=== PATIENT | female | born 1975 | race Caucasian/White ===

== ENCOUNTER 2020-02-25 15:53 | Emergency (ER) | payer OTHER ==
[~2020-02-25] VITALS: Ht 149.9 cm; Wt 84.4 kg
[~2020-02-25 15:53] MED LIST: ADVAIR 100/501 EA; GEODON60 MG PO; HYDROXYZINE PAM50 MG PO; IBUPROFEN600 MG PO; LEXAPRO20 MG PO; ROBAXIN500 MG PO; Z.0.DILANTIN100 MG; Z.0.GEODON20 MG; Z.0.LEXAPRO10 MG; Z.0.SPIRIVA18 MCG; Z.0.TRAZODONE HCL100 PO; ZOVIRAX400 MG PO
[2020-02-25] MEDS ORDERED: HYDROXYZINE HCL25 MG PO (18:14)
--- NOTE | 2020-02-25 18:20 | Emergency Department Note ---
History of Present Illnes History of Present Illness Chief Complaint: Drug Abuse/Intoxication History of Present Illness This is a 45 year old female arrives to the ED seeking help for methamphetamine, crack/cocaine and marijuana withdrawal. Patient denies any homicidal suicidal ideations. Patient denies any chest pain or fever or chills. Patient states she is just looking for additional services. . Chief Complaint Comment STATES SHAKING AND W/DRAWAL FROM HER METH AND COCAINE. PT AWAKE ALERT, AAOX4. FROM HOME. LIVES WITH MOM. DENIES SUICIDAL/HOMICIDAL FAUSTINO ALATIONS. NO SOB NO CP Historian: Patient, [facility]/EMS Arrival Mode: [facility] Treatment DRUG ABUSE TREATMENT SPECIALIST: See EMS Report Severity: mild Onset quality: gradual Duration (how long): week(s) Timing of current episode: intermittent Progression: waxing and waning Chronicity: recurrent Risk factors: drug use Past Medical/Family History Physician Review I have reviewed the patient's past medical and family history. Any updates have been documented here. Past Medical History Recent Fever: No Clinical Suspicion of Infectio: No New/Unexplained Change in Ment: No Other Medical History: PREVIOUS CRACK COCAINE USER, ETOH, CIRRHOSIS METH AND COCAINE ABUSE Other Surgery: OVARY REMOVED Social History Smoking Cessation: Current every day smoker Other Last Tetanus: UNKNOWN Review of Systems Review of Systems Constitutional: Reports no symptoms EENTM: Reports no symptoms Cardiovascular: Reports no symptoms Respiratory: Reports no symptoms Gastrointestinal: Reports no symptoms Genitourinary: Reports no symptoms Musculoskeletal: Reports no symptoms Integumentary: Reports no symptoms Neurological: Reports no symptoms Psychological: Reports as per HPI, Reports emotional problems Endocrine: Reports no symptoms Hematological/Lymphatic: Reports no symptoms Review of other systems: All other systems negative Physical Exam Related Data Allergies: Uncoded Allergies: IV DYE, IODINE CONTAINING CONTRAST (Allergy, 05/20/12) Triage Vital Signs Vital Signs Date Time Temp Pulse Resp B/P (MAP) Pulse Ox O2 Delivery O2 Flow Rate FiO2 02/25/20 15:54 98.4 109 20 160/94 98 Vital signs reviewed: Yes Physical Exam CONSTITUTIONAL Constitutional: Present well-developed, Present well-nourished HENT HENT: Present normocephalic, Present atraumatic, Present oropharynx clear/moist, Present nose normal HENT L/R: Present left ext ear normal, Present right ext ear normal EYES Eyes: Reports PERRL, Reports conjunctivae normal NECK Neck: Present ROM normal PULMONARY Pulmonary: Present effort normal, Present breath sounds normal CARDIOVASCULAR Cardiovascular: Present regular rhythm, Present heart sounds normal, Present capillary refill normal, Present normal rate GASTROINTESTINAL Abdominal: Present soft, Present nontender, Present bowel sounds normal GENITOURINARY Genitourinary: Present exam deferred SKIN Skin: Present warm, Present dry MUSCULOSKELETAL Musculoskeletal: Present ROM normal NEUROLOGICAL Neurological: Present alert, Present oriented x 3, Present no gross motor or sensory deficits PSYCHOLOGICAL Psychological: Present mood/affect normal, Present judgement normal Assessment & Plan Medical Decision Making MDM 45-year-old female seen and evaluated at bedside. Patient is a chronic illicit drug user, recently hasn't used for several weeks. Patient reportedly spent all her stimulus check on cocaine/crack, methamphetamine and marijuana. On arrival to the ED patient with normal vital signs, no fever or chills noted. The patient at length about using alternative support systems to help with her addiction. Patient expressed understanding. Patient individually steady gait. Assessment & Plan Final Impression: (1) Cocaine abuse (2) Crack cocaine overdose (3) Methamphetamine abuse Depart Disposition: HOME, SELF-CARE Last Vital Signs Date Time Temp Pulse Resp B/P (MAP) Pulse Ox O2 Delivery O2 Flow Rate FiO2 02/25/20 15:54 98.4 109 20 160/94 98 Home Meds Active Scripts Hydroxyzine Hcl (HYDROXYZINE HCL) 25 Mg Tablet, 25 MG PO DAILY, #30 TAB Prov:ROSHNI MENJIVAR, DO 02/25/20 Reported Medications Acyclovir (ZOVIRAX) 400 Mg Tablet, 1 TAB PO BID 10/07/12 Methocarbamol (ROBAXIN) 500 Mg Tablet, 1 TAB PO BID 10/07/12 Hydroxyzine Pamoate (HYDROXYZINE PAMOATE) 50 Mg Capsule, 1 TAB PO BID 10/07/12 Ibuprofen (IBUPROFEN) 600 Mg Tablet, 1 TAB PO DAILY 10/07/12 Escitalopram Oxalate (LEXAPRO) 20 Mg Tablet, 1 TAB PO DAILY 10/07/12 Ziprasidone Hcl (GEODON) 60 Mg Capsule, 3 TAB PO DAILY 10/07/12 Trazodone Hcl (Trazodone Hcl) 100 Mg Tablet, 2 TAB PO DAILY, 0 Refills 05/20/12 Tiotropium [place] (Spiriva) 18 Mcg Cap.w.dev 05/20/12 Salmeterol Xinaf/Fluticasone (Advair 100/50) 1 Ea Disk 05/20/12 Escitalopram Oxalate (Lexapro) 10 Mg Tablet 05/20/12 Ziprasidone Hcl (Geodon) 20 Mg Capsule 05/20/12 ROSHNI MENJIVAR, Feb 25, 2020 18:03
== END 2020-02-25 18:30 | disposition home or self-care (01) ==
LOC: ER 16:36
DX: F14.23 Cocaine dependence with withdrawal (principal); F15.10 Other stimulant abuse, uncomplicated; F17.210 Nicotine dependence, cigarettes, uncomplicated
CPT/HCPCS: 99282

== ENCOUNTER 2020-03-25 17:53 | Emergency (ER) | payer OTHER ==
[~2020-03-25] VITALS: Ht 149.9 cm; Wt 84.4 kg
[~2020-03-25 17:53] MED LIST changes: +HYDROXYZINE HCL25 MG PO
--- NOTE | 2020-03-25 18:31 | Emergency Department Note ---
History of Present Illnes History of Present Illness Chief Complaint: Abdominal Complaints History of Present Illness This is a 45 year old female tomach is swollen and she has hep c and cirrhosis last time she was tapped was 6 months ago and she was getting tapped once a month but she stopped going to her dr and she ran out of lactulose and naproxen . Historian: Patient Arrival Mode: Car Onset (how long ago): month(s) (6) Location: abd Quality: swelling Radiation: Reports non-radiation Severity: mild Onset quality: gradual Duration (how long): month(s) (6) Timing of current episode: constant Progression: worsening Chronicity: recurrent Context: Denies recent illness, Denies recent surgery Relieving factors: none Exacerbating factors: none Associated symptoms: Reports denies other symptoms Past Medical/Family History Physician Review I have reviewed the patient's past medical and family history. Any updates have been documented here. Past Medical History Recent Fever: No Clinical Suspicion of Infectio: No New/Unexplained Change in Ment: No Other Medical History: PREVIOUS CRACK COCAINE USER, ETOH, CIRRHOSIS METH AND COCAINE ABUSE Other Surgery: OVARY REMOVED Social History Smoking Cessation: Current every day smoker Alcohol Use: None Any Illegal Drug Use: No Physically hurt or threatened: No Family History Family history of heart diseas: No Other Last Tetanus: UNKNOWN Review of Systems Review of Systems Constitutional: Reports no symptoms EENTM: Reports no symptoms Cardiovascular: Reports no symptoms Respiratory: Reports no symptoms Gastrointestinal: Reports as per HPI Genitourinary: Reports no symptoms Musculoskeletal: Reports no symptoms Integumentary: Reports no symptoms Neurological: Reports no symptoms Psychological: Reports no symptoms Endocrine: Reports no symptoms Hematological/Lymphatic: Reports no symptoms Physical Exam Related Data Allergies: Uncoded Allergies: IV DYE, IODINE CONTAINING CONTRAST (Allergy, 05/20/12) Triage Vital Signs Vital Signs Date Time Temp Pulse Resp B/P (MAP) Pulse Ox O2 Delivery O2 Flow Rate FiO2 03/25/20 18:11 97.8 98 18 134/93 100 Room Air Vital signs reviewed: Yes Physical Exam CONSTITUTIONAL Constitutional: Present well-developed, Present well-nourished HENT HENT: Present normocephalic, Present atraumatic, Present oropharynx clear/moist, Present nose normal HENT L/R: Present left ext ear normal, Present right ext ear normal EYES Eyes: Reports PERRL, Reports conjunctivae normal NECK Neck: Present ROM normal PULMONARY Pulmonary: Present effort normal, Present breath sounds normal CARDIOVASCULAR Cardiovascular: Present regular rhythm, Present heart sounds normal, Present capillary refill normal, Present normal rate GASTROINTESTINAL Abdominal: Present soft, Present nontender, Present bowel sounds normal, Present distension (pt has ascites with fluid wave, nontender, ascites is not tense) GENITOURINARY Genitourinary: Present exam deferred SKIN Skin: Present warm, Present dry MUSCULOSKELETAL Musculoskeletal: Present ROM normal NEUROLOGICAL Neurological: Present alert, Present oriented x 3, Present no gross motor or sensory deficits PSYCHOLOGICAL Psychological: Present mood/affect normal, Present judgement normal Assessment & Plan Medical Decision Making MDM pt with h/o hep c, cirrhosis with longstanding ascites, no indication for emergent paracentesis, pt is in no distress, no sob, abd is nontender and ascites is not tense. pt discharged home to follow up with her liver doctor. prescribed lactulose 20 grams po bid, dispense 800 grams. Assessment & Plan Final Impression: (1) Cirrhosis (2) Ascites Depart Disposition: HOME, SELF-CARE Last Vital Signs Date Time Temp Pulse Resp B/P (MAP) Pulse Ox O2 Delivery O2 Flow Rate FiO2 03/25/20 18:11 97.8 98 18 134/93 100 Room Air Home Meds Active Scripts Hydroxyzine Hcl (HYDROXYZINE HCL) 25 Mg Tablet, 25 MG PO DAILY, #30 TAB Prov:ROSHNI MENJIVAR, DO 02/25/20 Reported Medications Acyclovir (ZOVIRAX) 400 Mg Tablet, 1 TAB PO BID 10/07/12 Methocarbamol (ROBAXIN) 500 Mg Tablet, 1 TAB PO BID 10/07/12 Hydroxyzine Pamoate (HYDROXYZINE PAMOATE) 50 Mg Capsule, 1 TAB PO BID 10/07/12 Ibuprofen (IBUPROFEN) 600 Mg Tablet, 1 TAB PO DAILY 10/07/12 Escitalopram Oxalate (LEXAPRO) 20 Mg Tablet, 1 TAB PO DAILY 10/07/12 Ziprasidone Hcl (GEODON) 60 Mg Capsule, 3 TAB PO DAILY 10/07/12 Trazodone Hcl (Trazodone Hcl) 100 Mg Tablet, 2 TAB PO DAILY, 0 Refills 05/20/12 Tiotropium [place] (Spiriva) 18 Mcg Cap.w.dev 05/20/12 Salmeterol Xinaf/Fluticasone (Advair 100/50) 1 Ea Disk 05/20/12 Escitalopram Oxalate (Lexapro) 10 Mg Tablet 05/20/12 Ziprasidone Hcl (Geodon) 20 Mg Capsule 05/20/12 ION BOSE MD Mar 25, 2020 18:31
== END 2020-03-25 18:18 | disposition home or self-care (01) ==
LOC: ER 18:15
DX: K74.60 Unspecified cirrhosis of liver (principal); R18.8 Other ascites; B19.20 Unspecified viral hepatitis C without hepatic coma; F17.210 Nicotine dependence, cigarettes, uncomplicated
CPT/HCPCS: 99282

== ENCOUNTER → 2020-06-14 | Outpatient (CLI) | payer OTHER ==
[~2020-06-14] MED LIST changes: +ADDERALL 30 MG30 MG PO; +DICYCLOMINE HCL20 MG PO; +FAMOTIDINE20 MG PO; +FOLIC ACID PO; +FUROSEMIDE40 MG PO; +KEPPRA XR750 MG PO; +METFORMIN HCL500 MG PO; +ONDANSETRON2 MG/1 ML PO; +OR PHACO EYE KIT ONE; +PHENYTOIN SODI300 MG PO; +PREOP PHACO EYE KIT ONE; +SEROQUEL100 MG PO; +SEROQUEL50 MG PO; +SULFASALAZINE500 MG PO; +SYMBICORT 80-10.2 GM INH; +TRAZODONE HCL50 MG PO; +VIT B12 PO
== END | disposition home or self-care (01) ==
LOC: LAB 07:36 → OR 07:36 → EDSTATUS 15:30
PROVIDERS: ATTEND Ophthalmology
DX: H25.11 Age-related nuclear cataract, right eye (principal); Z11.59 Encounter for screening for other viral diseases; Z01.812 Encounter for preprocedural laboratory examination; Z53.8 Procedure and treatment not carried out for other reasons

== ENCOUNTER 2021-01-14 18:19 | Emergency (ER) | payer OTHER ==
[~2021-01-14] VITALS: Ht 149.9 cm; Wt 62.6 kg
[~2021-01-14 18:19] MED LIST changes: -OR PHACO EYE KIT ONE; -PREOP PHACO EYE KIT ONE
[2021-01-14 18:53] LABS: BASOPHILS % 0.3 % (0.0-1.0); EOSINOPHILS # (AUTO) 0.1 (0.0-0.4); EOSINOPHILS % 0.9 % (0.0-6.0); HEMATOCRIT 45.6 % (34.2-44.1); HEMOGLOBIN 15.3 g/dL (12.0-16.0); LYMPHOCYTES % 34.3 % (18.0-39.1); MEAN CORPUSCULAR HEMOGLOBIN 30.9 pg (28-32); MEAN CORPUSCULAR HGB CONC 33.6 g/dL (31-35); MEAN CORPUSCULAR VOLUME 92.1 fL (81-99); MONOCYTES # (AUTO) 1.2 (0.2-0.8); MONOCYTES % 9.9 % (4.4-11.3); NEUTROPHILS # (AUTO) 6.4 (2.1-6.9); NEUTROPHILS % 54.1 % (38.7-80.0); PLATELET COUNT 161 x10e3/uL (140-360); RED BLOOD COUNT 4.95 x10e6/uL (3.6-5.1); RED CELL DISTRIBUTION WIDTH 13.8 % (11.7-14.4)
[2021-01-14 19:00] LABS: AMPHETAMINES SCREEN,URINE NEGATIVE (NEGATIVE); BENZODIAZEPINES SCREEN,URINE NEGATIVE (NEGATIVE); CLARITY,URINE HAZY (CLEAR); COLOR,URINE YELLOW (YELLOW); KETONES,URINE NEGATIVE (NEGATIVE); LEUKOCYTE ESTERASE ,URINE TRACE (NEGATIVE); NITRITE,URINE NEGATIVE (NEGATIVE); PHENCYCLIDINE SCREEN,URINE NEGATIVE (NEGATIVE); PROTEIN,URINE DIPSTICK NEGATIVE (NEGATIVE)
[2021-01-14 19:01] LABS: URINE UROBILINOGEN 0.2 mg/dL (0.2 - 1)
[2021-01-14 19:02] LABS: BACTERIA,URINE FEW /HPF; EPITHELIAL CELLS,URINE FEW /LPF; RBC,URINE 0-5 /HPF (0-5)
[2021-01-14 19:09] LABS: ALANINE AMINOTRANSFERASE 25 IU/L (0-55); ALBUMIN 3.4 g/dL (3.5-5.0); ALBUMIN/GLOBULIN RATIO 0.8 (0.8-2.0); ALKALINE PHOSPHATASE 149 IU/L (40-150); BLOOD UREA NITROGEN 7 mg/dL (7-26); BUN/CREATININE RATIO 9 (6-25); CALCIUM 9.1 mg/dL (8.4-10.2); CARBON DIOXIDE 21 mmol/L (22-29); CHLORIDE 103 mmol/L (98-107); CREATININE, SERUM 0.82 mg/dL (0.57-1.11); EST GLOMERULAR FILTRATION RATE > 60 ML/MIN (60-); GLUCOSE 365 mg/dL (74-118); SODIUM 137 mmol/L (136-145)
[2021-01-14] MEDS ORDERED: SODIUM CHLORIDE 0.9% 1000ML 1,000 ML ONE (19:26)
[2021-01-14] MEDS ORDERED: INSULIN REGULAR, HUMAN 100 UNIT/1 ML 3ML VIAL SQ ONE (19:30)
[2021-01-14] MEDS ORDERED: IBUPROFEN 600 MG TAB PO STA (19:36)
[2021-01-14 19:50] LABS: EOSINOPHILS % (MANUAL) 1 % (0-7); LYMPHOCYTES % (MANUAL) 40 % (19-48); MONOCYTES % (MANUAL) 3 % (3.4-9.0); NEUTROPHILS % (MANUAL) 53 % (40-74); PLATELET ESTIMATE ADEQUATE; PLATELET MORPHOLOGY COMMENT NORMAL; RBC MORPHOLOGY COMMENT NORMAL
[2021-01-14 20:24] VITALS: BP 140/92
== END 2021-01-14 20:21 | disposition home or self-care (01) ==
LOC: ER 18:30
DX: S93.401A Sprain of unspecified ligament of right ankle, initial encounter (principal); S91.201A Unspecified open wound of right great toe with damage to nail, initial encounter; E11.65 Type 2 diabetes mellitus with hyperglycemia; K74.60 Unspecified cirrhosis of liver; F14.10 Cocaine abuse, uncomplicated; R56.9 Unspecified convulsions; F17.210 Nicotine dependence, cigarettes, uncomplicated
CPT/HCPCS: 36415; 73610; 73630; 80053; 80307; 81001; 82948; 85025; 99284; J1817; J7030

== ENCOUNTER 2021-05-17 09:41 | Emergency (ER) | payer OTHER ==
[~2021-05-17] VITALS: Ht 149.9 cm; Wt 62.6 kg
[2021-05-17] MEDS ORDERED: ONDANSETRON HCL INJ 2MG/ML 2ML 2 MG/ML VIAL IV STA (10:16)
[2021-05-17 10:49] LABS: BASOPHILS % 0.5 % (0.0-1.0); EOSINOPHILS # (AUTO) 0.1 (0.0-0.4); EOSINOPHILS % 1.3 % (0.0-6.0); HEMATOCRIT 49.1 % (34.2-44.1); HEMOGLOBIN 15.8 g/dL (12.0-16.0); LYMPHOCYTES # (AUTO) 3.6 (1.0-3.2); LYMPHOCYTES % 41.2 % (18.0-39.1); MEAN CORPUSCULAR HEMOGLOBIN 29.9 pg (28-32); MEAN CORPUSCULAR HGB CONC 32.2 g/dL (31-35); MEAN CORPUSCULAR VOLUME 92.8 fL (81-99); MONOCYTES # (AUTO) 0.8 (0.2-0.8); NEUTROPHILS # (AUTO) 4.2 (2.1-6.9); NEUTROPHILS % 47.8 % (38.7-80.0); PLATELET COUNT 185 x10e3/uL (140-360); RED BLOOD COUNT 5.29 x10e6/uL (3.6-5.1); RED CELL DISTRIBUTION WIDTH 13.6 % (11.7-14.4)
[2021-05-17 10:51] LABS: INR 0.9; PARTIAL THROMBOPLASTIN TIME 28.9 seconds (23.8-35.5); PROTHROMBIN TIME 12.3 seconds (11.9-14.5)
[2021-05-17 10:57] LABS: ALANINE AMINOTRANSFERASE 19 IU/L (0-55); ALBUMIN 3.6 g/dL (3.5-5.0); ALKALINE PHOSPHATASE 119 IU/L (40-150); AMYLASE 63 U/L (25-125); ANION GAP 12.9 mmol/L (8-16); BLOOD UREA NITROGEN 8 mg/dL (7-26); BUN/CREATININE RATIO 11 (6-25); CARBON DIOXIDE 25 mmol/L (22-29); CHLORIDE 106 mmol/L (98-107); CREATINE KINASE 29 IU/L (29-168); CREATININE, SERUM 0.72 mg/dL (0.57-1.11); EST GLOMERULAR FILTRATION RATE 86 ML/MIN (60-); GLUCOSE 133 mg/dL (74-118); LIPASE 80 U/L (8-78); MAGNESIUM 1.8 MG/DL (1.3-2.1); POTASSIUM 3.9 mmol/L (3.5-5.1); SODIUM 140 mmol/L (136-145)
[2021-05-17 12:27] LABS: CLARITY,URINE CLEAR (CLEAR); COLOR,URINE YELLOW (YELLOW); KETONES,URINE NEGATIVE (NEGATIVE); LEUKOCYTE ESTERASE ,URINE NEGATIVE (NEGATIVE); NITRITE,URINE NEGATIVE (NEGATIVE); PROTEIN,URINE DIPSTICK TRACE (NEGATIVE)
[2021-05-17 12:55] LABS: BACTERIA,URINE FEW /HPF; RBC,URINE 0-5 /HPF (0-5); WBC,URINE (MAN) 0-5 /HPF (0-5)
[2021-05-17 12:56] LABS: EPITHELIAL CELLS,URINE FEW /LPF; TRANSITIONAL EPI CELLS,URINE FEW
[2021-05-17 13:00] LABS: AMPHETAMINES SCREEN,URINE NEGATIVE (NEGATIVE); BENZODIAZEPINES SCREEN,URINE NEGATIVE (NEGATIVE); PHENCYCLIDINE SCREEN,URINE NEGATIVE (NEGATIVE)
== END 2021-05-17 12:38 | disposition left against medical advice (07) ==
LOC: ER 10:24
DX: K74.60 Unspecified cirrhosis of liver (principal); Z91.041 Radiographic dye allergy status; R18.8 Other ascites; F14.10 Cocaine abuse, uncomplicated; Z20.822 Contact with and (suspected) exposure to COVID-19
CPT/HCPCS: 36415; 71045; 74176; 80053; 80307; 81001; 82150; 82550; 82553; 83690; 83735; 84484; 85025; 85610; 85730; 86850; 86900; 93005; 99284; C9113; J2405; U0002

== ENCOUNTER 2021-07-04 09:54 | Emergency (ER) | payer OTHER ==
[~2021-07-04] VITALS: Ht 149.9 cm; Wt 62.6 kg
[2021-07-04 10:41] LABS: BASOPHILS % 0.3 % (0.0-1.0); EOSINOPHILS # (AUTO) 0.1 (0.0-0.4); EOSINOPHILS % 0.9 % (0.0-6.0); HEMATOCRIT 46.8 % (34.2-44.1); HEMOGLOBIN 15.7 g/dL (12.0-16.0); LYMPHOCYTES % 35.2 % (18.0-39.1); MEAN CORPUSCULAR HEMOGLOBIN 29.4 pg (28-32); MEAN CORPUSCULAR HGB CONC 33.5 g/dL (31-35); MEAN CORPUSCULAR VOLUME 87.6 fL (81-99); MONOCYTES # (AUTO) 0.8 (0.2-0.8); MONOCYTES % 6.7 % (4.4-11.3); NEUTROPHILS # (AUTO) 6.5 (2.1-6.9); NEUTROPHILS % 56.5 % (38.7-80.0); PLATELET COUNT 169 x10e3/uL (140-360); RED BLOOD COUNT 5.34 x10e6/uL (3.6-5.1); RED CELL DISTRIBUTION WIDTH 13.4 % (11.7-14.4)
[2021-07-04 11:06] LABS: ALBUMIN 3.5 g/dL (3.5-5.0); ALBUMIN/GLOBULIN RATIO 1.1 (0.8-2.0); ANION GAP 14.4 mmol/L (8-16); CALCIUM 8.8 mg/dL (8.4-10.2); CREATININE, SERUM 0.78 mg/dL (0.57-1.11); POTASSIUM 3.4 mmol/L (3.5-5.1)
[2021-07-04] MEDS ORDERED: KETOROLAC TROMETHAMINE 30 MG/ML VIAL IM STA (16:48)
== END 2021-07-04 17:36 | disposition home or self-care (01) ==
LOC: ER 10:15
DX: R07.9 Chest pain, unspecified (principal); Z91.041 Radiographic dye allergy status; C22.9 Malignant neoplasm of liver, not specified as primary or secondary; Z20.822 Contact with and (suspected) exposure to COVID-19
CPT/HCPCS: 36415; 71045; 72125; 78580; 80053; 84484; 85025; 85379; 93005; 99284; A9540; J1885; U0002; 70450

== ENCOUNTER 2021-07-14 14:16 | Emergency (ER) | payer OTHER ==
[~2021-07-14] VITALS: Ht 149.9 cm; Wt 62.6 kg
[2021-07-14] MEDS ORDERED: SODIUM CHLORIDE 0.9% 1000ML 1,000 ML IV STA (14:29)
[2021-07-14] MEDS ORDERED: LEVETIRACETAM 500MG/5ML VIAL 1,000 MG in SODIUM CHLORIDE 0.9% 100 ML IV ONE (14:30)
[2021-07-14] MEDS ORDERED: KETOROLAC TROMETHAMINE 30 MG/ML VIAL IV STA (14:56)
[2021-07-14 14:57] LABS: BASOPHILS % 0.4 % (0.0-1.0); EOSINOPHILS # (AUTO) 0.1 (0.0-0.4); HEMATOCRIT 49.6 % (34.2-44.1); HEMOGLOBIN 16.1 g/dL (12.0-16.0); LYMPHOCYTES # (AUTO) 5.2 (1.0-3.2); LYMPHOCYTES % 47.3 % (18.0-39.1); MEAN CORPUSCULAR HEMOGLOBIN 29.3 pg (28-32); MEAN CORPUSCULAR HGB CONC 32.5 g/dL (31-35); MEAN CORPUSCULAR VOLUME 90.2 fL (81-99); MONOCYTES # (AUTO) 0.7 (0.2-0.8); MONOCYTES % 6.5 % (4.4-11.3); NEUTROPHILS # (AUTO) 4.9 (2.1-6.9); NEUTROPHILS % 44.5 % (38.7-80.0); PLATELET COUNT 241 x10e3/uL (140-360); RED CELL DISTRIBUTION WIDTH 13.5 % (11.7-14.4)
[2021-07-14 15:13] LABS: INR 0.9; PROTHROMBIN TIME 12.9 seconds (11.9-14.5)
[2021-07-14 15:14] LABS: PARTIAL THROMBOPLASTIN TIME 30.5 seconds (23.8-35.5)
[2021-07-14 15:25] LABS: ALANINE AMINOTRANSFERASE 10 IU/L (0-55); ALBUMIN 3.4 g/dL (3.5-5.0); ALBUMIN/GLOBULIN RATIO 0.9 (0.8-2.0); ALKALINE PHOSPHATASE 128 IU/L (40-150); ANION GAP 12.1 mmol/L (8-16); BLOOD UREA NITROGEN 11 mg/dL (7-26); BUN/CREATININE RATIO 16 (6-25); CALCIUM 9.1 mg/dL (8.4-10.2); CARBON DIOXIDE 24 mmol/L (22-29); CHLORIDE 106 mmol/L (98-107); CREATINE KINASE 19 IU/L (29-168); CREATININE, SERUM 0.68 mg/dL (0.57-1.11); EST GLOMERULAR FILTRATION RATE 92 ML/MIN (60-); GLUCOSE 156 mg/dL (74-118); POTASSIUM 4.1 mmol/L (3.5-5.1); SODIUM 138 mmol/L (136-145)
[2021-07-14] MEDS ORDERED: IBUPROFEN600 MG PO (15:52)
[2021-07-14] MEDS ORDERED: KEPPRA500 MG PO (15:52)
[2021-07-14 16:09] VITALS: BP 124/75
[2021-07-14 20:17] LABS: SALICYLATE < 5.0 mg/dL (0-30)
== END 2021-07-14 16:11 | disposition home or self-care (01) ==
LOC: ER 14:24
DX: M54.50 Low back pain, unspecified (principal); M79.18 Myalgia, other site; G40.909 Epilepsy, unspecified, not intractable, without status epilepticus; E11.65 Type 2 diabetes mellitus with hyperglycemia; I10 Essential (primary) hypertension; K76.9 Liver disease, unspecified; F41.9 Anxiety disorder, unspecified; R94.31 Abnormal electrocardiogram [ECG] [EKG]
CPT/HCPCS: 36415; 70450; 71250; 72131; 80053; 80329 ×2; 82550; 82553; 83880; 84484; 85025; 85610; 85730; 93005; 99284; J1885; J1953; J7030; J7050

== ENCOUNTER 2021-09-12 13:19 | Emergency (ER) | payer OTHER ==
[~2021-09-12] VITALS: Ht 149.9 cm; Wt 62.6 kg
[~2021-09-12 13:19] MED LIST changes: +KEPPRA500 MG PO
[2021-09-12] MEDS ORDERED: SODIUM CHLORIDE 0.9% 1000ML 1,000 ML IV ONE (13:45)
[2021-09-12 14:47] LABS: BASOPHILS % 0.3 % (0.0-1.0); EOSINOPHILS # (AUTO) 0.1 (0.0-0.4); EOSINOPHILS % 0.8 % (0.0-6.0); HEMATOCRIT 44.6 % (34.2-44.1); HEMOGLOBIN 14.8 g/dL (12.0-16.0); LYMPHOCYTES # (AUTO) 3.1 (1.0-3.2); LYMPHOCYTES % 42.1 % (18.0-39.1); MEAN CORPUSCULAR HEMOGLOBIN 29.5 pg (28-32); MEAN CORPUSCULAR HGB CONC 33.2 g/dL (31-35); MEAN CORPUSCULAR VOLUME 88.8 fL (81-99); MONOCYTES # (AUTO) 1.2 (0.2-0.8); MONOCYTES % 16.7 % (4.4-11.3); NEUTROPHILS # (AUTO) 2.9 (2.1-6.9); NEUTROPHILS % 39.1 % (38.7-80.0); PLATELET COUNT 186 x10e3/uL (140-360); RED BLOOD COUNT 5.02 x10e6/uL (3.6-5.1); RED CELL DISTRIBUTION WIDTH 14.2 % (11.7-14.4)
[2021-09-12 15:04] LABS: ALBUMIN 3.9 g/dL (3.5-5.0); ANION GAP 13.2 mmol/L (8-16); CALCIUM 10.2 mg/dL (8.4-10.2); CREATININE, SERUM 0.82 mg/dL (0.57-1.11); POTASSIUM 4.2 mmol/L (3.5-5.1)
[2021-09-12] MEDS ORDERED: TESSALON PERLE100 MG PO (15:20)
[2021-09-12] MEDS ORDERED: PROAIR HFA INH8.5 GM PEG (15:20)
[2021-09-12] MEDS ORDERED: PREDNISONE50 MG PO (15:20)
== END 2021-09-12 15:41 | disposition home or self-care (01) ==
LOC: ER 13:36
DX: U07.1 COVID-19 (principal); I10 Essential (primary) hypertension; E11.9 Type 2 diabetes mellitus without complications; G40.909 Epilepsy, unspecified, not intractable, without status epilepticus; K74.60 Unspecified cirrhosis of liver; F32.A Depression, unspecified; Z91.041 Radiographic dye allergy status; Z79.899 Other long term (current) drug therapy; Z79.84 Long term (current) use of oral hypoglycemic drugs; Z86.19 Personal history of other infectious and parasitic diseases
CPT/HCPCS: 36415; 71045; 80053; 83735; 85025; 93005; 99284; J7030; U0002

== ENCOUNTER 2021-12-07 15:12 | Emergency (ER) | payer OTHER ==
[~2021-12-07] VITALS: Ht 152.4 cm; Wt 76.2 kg
[~2021-12-07 15:12] MED LIST changes: +PREDNISONE50 MG PO; +PROAIR HFA INH8.5 GM PEG; +TESSALON PERLE100 MG PO
[2021-12-07] MEDS ORDERED: SODIUM CHLORIDE 0.9% 1000ML 1,000 ML IV ONE (15:45)
[2021-12-07 15:46] LABS: BASOPHILS % 0.4 % (0.0-1.0); EOSINOPHILS # (AUTO) 0.2 (0.0-0.4); EOSINOPHILS % 1.8 % (0.0-6.0); HEMATOCRIT 43.5 % (34.2-44.1); HEMOGLOBIN 14.8 g/dL (12.0-16.0); LYMPHOCYTES # (AUTO) 4.8 (1.0-3.2); LYMPHOCYTES % 52.5 % (18.0-39.1); MEAN CORPUSCULAR HEMOGLOBIN 30.3 pg (28-32); MEAN CORPUSCULAR VOLUME 89.1 fL (81-99); MONOCYTES # (AUTO) 0.9 (0.2-0.8); MONOCYTES % 9.8 % (4.4-11.3); NEUTROPHILS # (AUTO) 3.2 (2.1-6.9); NEUTROPHILS % 34.8 % (38.7-80.0); PLATELET COUNT 199 x10e3/uL (140-360); RED BLOOD COUNT 4.88 x10e6/uL (3.6-5.1); RED CELL DISTRIBUTION WIDTH 12.8 % (11.7-14.4)
[2021-12-07 16:09] LABS: ALBUMIN 3.3 g/dL (3.5-5.0); ALBUMIN/GLOBULIN RATIO 0.8 (0.8-2.0); ANION GAP 13.7 mmol/L (8-16); CALCIUM 8.5 mg/dL (8.4-10.2); CREATININE, SERUM 0.92 mg/dL (0.57-1.11); POTASSIUM 3.7 mmol/L (3.5-5.1)
[2021-12-07 16:25] LABS: EOSINOPHILS % (MANUAL) 1 % (0-7); LYMPHOCYTES % (MANUAL) 35 % (19-48); MONOCYTES % (MANUAL) 10 % (3.4-9.0); NEUTROPHILS % (MANUAL) 43 % (40-74); PLATELET ESTIMATE ADEQUATE; PLATELET MORPHOLOGY COMMENT NORMAL; RBC MORPHOLOGY COMMENT NORMAL
[2021-12-07] MEDS ORDERED: INSULIN REGULAR, HUMAN 100 UNIT/1 ML IV ONE (17:15)
== END 2021-12-07 17:48 | disposition home or self-care (01) ==
LOC: ER 15:46
DX: E11.65 Type 2 diabetes mellitus with hyperglycemia (principal); I10 Essential (primary) hypertension; B19.20 Unspecified viral hepatitis C without hepatic coma; G40.909 Epilepsy, unspecified, not intractable, without status epilepticus; K76.9 Liver disease, unspecified; F41.9 Anxiety disorder, unspecified
CPT/HCPCS: 36415; 80053; 82948; 85025; 99284; J1817; J7030

== ENCOUNTER 2022-03-14 18:58 | Emergency (ER) | payer OTHER ==
[~2022-03-14] VITALS: Ht 180.3 cm; Wt 76.2 kg
[2022-03-14 19:54] LABS: BASOPHILS % 0.3 % (0.0-1.0); EOSINOPHILS # (AUTO) 0.1 (0.0-0.4); EOSINOPHILS % 0.7 % (0.0-6.0); HEMOGLOBIN 16.4 g/dL (12.0-16.0); LYMPHOCYTES # (AUTO) 5.7 (1.0-3.2); LYMPHOCYTES % 57.3 % (18.0-39.1); MEAN CORPUSCULAR HEMOGLOBIN 29.2 pg (28-32); MEAN CORPUSCULAR HGB CONC 32.8 g/dL (31-35); MEAN CORPUSCULAR VOLUME 89.1 fL (81-99); MONOCYTES # (AUTO) 0.7 (0.2-0.8); NEUTROPHILS # (AUTO) 3.4 (2.1-6.9); NEUTROPHILS % 34.5 % (38.7-80.0); PLATELET COUNT 174 x10e3/uL (140-360); RED BLOOD COUNT 5.61 x10e6/uL (3.6-5.1); RED CELL DISTRIBUTION WIDTH 12.7 % (11.7-14.4)
[2022-03-14 20:09] LABS: INR 0.86; PROTHROMBIN TIME 12.5 seconds (11.9-14.5)
[2022-03-14] MEDS ORDERED: HYDROCODONE/APAP 5MG-325MG TAB PO ONE (20:15)
[2022-03-14 20:17] LABS: ALANINE AMINOTRANSFERASE 33 IU/L (0-55); ALBUMIN 3.5 g/dL (3.5-5.0); ALBUMIN/GLOBULIN RATIO 0.8 (0.8-2.0); ALKALINE PHOSPHATASE 182 IU/L (40-150); ANION GAP 17.2 mmol/L (8-16); BLOOD UREA NITROGEN 10 mg/dL (7-26); BUN/CREATININE RATIO 11 (6-25); CALCIUM 9.6 mg/dL (8.4-10.2); CARBON DIOXIDE 23 mmol/L (22-29); CHLORIDE 97 mmol/L (98-107); CREATININE, SERUM 0.93 mg/dL (0.57-1.11); LIPASE 104 U/L (8-78); POTASSIUM 4.2 mmol/L (3.5-5.1); SODIUM 133 mmol/L (136-145)
[2022-03-14 20:19] LABS: GLUCOSE 525 mg/dL (74-118)
[2022-03-14] MEDS ORDERED: INSULIN REGULAR, HUMAN 100 UNIT/1 ML IV ONE (20:45)
[2022-03-14] MEDS ORDERED: INSULIN REGULAR, HUMAN 100 UNIT/1 ML SQ ONE (20:45)
[2022-03-14] MEDS ORDERED: INSULIN REGULAR, HUMAN 100 UNIT/1 ML ONE (21:12)
[2022-03-14 22:11] VITALS: BP 124/82
== END 2022-03-14 22:11 | disposition home or self-care (01) ==
LOC: ER 19:19
DX: R18.8 Other ascites (principal); K74.60 Unspecified cirrhosis of liver; E11.65 Type 2 diabetes mellitus with hyperglycemia; R11.2 Nausea with vomiting, unspecified
CPT/HCPCS: 0223U; 36415; 71045; 80053; 82948; 83690; 84484; 85025; 85610; 99284; J1817

== ENCOUNTER → 2022-03-20 | Outpatient (CLI) | payer OTHER | LOC: US 09:15 | PROVIDERS: ATTEND Internal Medicine Gastroenterology | DX: K70.31 Alcoholic cirrhosis of liver with ascites (principal) | CPT/HCPCS: 76705 ==

== ENCOUNTER 2022-04-17 15:26 | Emergency (ER) | payer OTHER ==
[~2022-04-17] VITALS: Ht 149.9 cm; Wt 76.2 kg
[2022-04-17] MEDS ORDERED: SODIUM CHLORIDE 0.9% 1000ML 1,000 ML IV ONE (16:00)
[2022-04-17] MEDS ORDERED: INSULIN REGULAR, HUMAN 100 UNIT/1 ML SQ ONE (16:00)
[2022-04-17 16:09] LABS: BASOPHILS % 0.4 % (0.0-1.0); EOSINOPHILS # (AUTO) 0.1 (0.0-0.4); EOSINOPHILS % 0.7 % (0.0-6.0); HEMATOCRIT 44.2 % (34.2-44.1); LYMPHOCYTES # (AUTO) 4.9 (1.0-3.2); LYMPHOCYTES % 44.2 % (18.0-39.1); MEAN CORPUSCULAR HEMOGLOBIN 29.2 pg (28-32); MEAN CORPUSCULAR HGB CONC 33.9 g/dL (31-35); MEAN CORPUSCULAR VOLUME 86.2 fL (81-99); MONOCYTES # (AUTO) 0.9 (0.2-0.8); MONOCYTES % 8.3 % (4.4-11.3); NEUTROPHILS # (AUTO) 5.1 (2.1-6.9); NEUTROPHILS % 45.8 % (38.7-80.0); PLATELET COUNT 193 x10e3/uL (140-360); RED BLOOD COUNT 5.13 x10e6/uL (3.6-5.1); RED CELL DISTRIBUTION WIDTH 12.6 % (11.7-14.4)
[2022-04-17 16:18] LABS: CLARITY,URINE CLEAR (CLEAR); COLOR,URINE YELLOW (YELLOW); KETONES,URINE NEGATIVE (NEGATIVE); LEUKOCYTE ESTERASE ,URINE NEGATIVE (NEGATIVE); NITRITE,URINE NEGATIVE (NEGATIVE); PROTEIN,URINE DIPSTICK NEGATIVE (NEGATIVE); URINE UROBILINOGEN 0.2 mg/dL (0.2 - 1)
[2022-04-17 16:24] LABS: ALBUMIN 3.4 g/dL (3.5-5.0); ALBUMIN/GLOBULIN RATIO 0.8 (0.8-2.0); ANION GAP 15.3 mmol/L (8-16); CALCIUM 8.7 mg/dL (8.4-10.2); CREATININE, SERUM 1.02 mg/dL (0.57-1.11); POTASSIUM 4.3 mmol/L (3.5-5.1)
[2022-04-17 16:41] LABS: BACTERIA,URINE FEW /HPF; EPITHELIAL CELLS,URINE MODERATE /LPF; YEAST,URINE MODERATE
== END 2022-04-17 17:06 | disposition home or self-care (01) ==
LOC: ER 15:32
DX: R06.00 Dyspnea, unspecified (principal); K74.60 Unspecified cirrhosis of liver; R10.30 Lower abdominal pain, unspecified; E11.65 Type 2 diabetes mellitus with hyperglycemia; R94.31 Abnormal electrocardiogram [ECG] [EKG]
CPT/HCPCS: 36415; 71045; 80053; 81001; 82140; 84484; 85025; 93005; 99284; J1817; J7030

== ENCOUNTER → 2022-07-02 | Outpatient (CLI) | payer OTHER ==
[~2022-07-02] MED LIST changes: +GADOBENATE DIMEGLUMINE 1 ML IV ONE
[2022-07-02 13:36] LABS: CREATININE, SERUM 0.85 mg/dL (0.57-1.11)
== END ==
LOC: MRI 12:37
PROVIDERS: ATTEND Internal Medicine Gastroenterology
DX: R16.2 Hepatomegaly with splenomegaly, not elsewhere classified (principal); Z85.05 Personal history of malignant neoplasm of liver
CPT/HCPCS: 36415; 74183; 82565; 84520; A9577

== ENCOUNTER 2022-07-09 08:06 | Emergency (ER) | payer OTHER ==
[~2022-07-09] VITALS: Ht 149.9 cm; Wt 76.2 kg
[~2022-07-09 08:06] MED LIST changes: -GADOBENATE DIMEGLUMINE 1 ML IV ONE
[2022-07-09] MEDS ORDERED: HYDROCODONE/APAP 7.5MG-325MG 1 EA TAB PO ONE (08:30)
[2022-07-09] MEDS ORDERED: METHOCARBAMOL500 MG PO (09:46)
== END 2022-07-09 10:07 | disposition home or self-care (01) ==
LOC: ER 08:15
DX: M62.830 Muscle spasm of back (principal); E11.9 Type 2 diabetes mellitus without complications; K76.9 Liver disease, unspecified
CPT/HCPCS: 71101; 99283

== ENCOUNTER 2022-09-18 14:50 | Emergency (ER) | payer OTHER ==
[~2022-09-18] VITALS: Ht 149.9 cm; Wt 76.2 kg
[~2022-09-18 14:50] MED LIST changes: +BACTRIM DS TAB1 EACH PO; +BENZONATATE100 MG PO; +CEPHALEXIN500 MG PO; +METHOCARBAMOL500 MG PO; +PREDNISONE20 MG PO; +PROAIR DIGIHAL90 MCG INH; +VENTOLIN HFA18 GM INH
== END 2022-09-18 15:18 | disposition home or self-care (01) ==
LOC: ER 14:53
DX: R73.9 Hyperglycemia, unspecified (principal); K74.60 Unspecified cirrhosis of liver; Z88.6 Allergy status to analgesic agent; Z91.041 Radiographic dye allergy status; Z91.14 Patient's other noncompliance with medication regimen; Z79.84 Long term (current) use of oral hypoglycemic drugs
CPT/HCPCS: 36415; 82948; 99282

== ENCOUNTER → 2022-09-27 | Outpatient (CLI) | payer OTHER | LOC: US 12:28 | PROVIDERS: ATTEND Internal Medicine Gastroenterology | DX: R18.8 Other ascites (principal); K74.60 Unspecified cirrhosis of liver | CPT/HCPCS: 76705 ==

== ENCOUNTER 2022-09-30 07:50 | Emergency (ER) | payer OTHER ==
[~2022-09-30] VITALS: Ht 149.9 cm; Wt 76.2 kg
[2022-09-30] MEDS ORDERED: BENZONATATE 100 MG CAP PO PRN (08:15)
[2022-09-30] MEDS ORDERED: BENZONATATE100 MG PO (08:38)
== END 2022-09-30 08:44 | disposition home or self-care (01) ==
LOC: ER 07:55
DX: R05.9 Cough, unspecified (principal); K74.60 Unspecified cirrhosis of liver; E11.9 Type 2 diabetes mellitus without complications; Z88.6 Allergy status to analgesic agent; Z91.041 Radiographic dye allergy status; Z20.822 Contact with and (suspected) exposure to COVID-19; Z79.84 Long term (current) use of oral hypoglycemic drugs; Z79.899 Other long term (current) drug therapy; Z86.19 Personal history of other infectious and parasitic diseases
CPT/HCPCS: 0223U; 36415; 87400; 99283

== ENCOUNTER 2022-12-14 07:58 | Emergency (ER) | payer OTHER ==
[~2022-12-14] VITALS: Ht 149.9 cm; Wt 76.2 kg
[2022-12-14] MEDS ORDERED: METHOCARBAMOL500 MG PO (08:10)
== END 2022-12-14 08:14 | disposition home or self-care (01) ==
LOC: ER 08:02
DX: M79.621 Pain in right upper arm (principal); M79.18 Myalgia, other site; E11.9 Type 2 diabetes mellitus without complications; K76.9 Liver disease, unspecified; G40.909 Epilepsy, unspecified, not intractable, without status epilepticus; F17.210 Nicotine dependence, cigarettes, uncomplicated
CPT/HCPCS: 99283

== ENCOUNTER 2022-12-31 19:30 | Emergency (ER) | payer OTHER ==
[~2022-12-31] VITALS: Ht 149.9 cm; Wt 76.2 kg
[2022-12-31] MEDS ORDERED: INSULIN REGULAR, HUMAN 100 UNIT/1 ML SQ ONE (19:45)
[2022-12-31 19:53] LABS: BASOPHILS # (AUTO) 0.1 (0.0-0.1); BASOPHILS % 0.4 % (0.0-1.0); EOSINOPHILS # (AUTO) 0.1 (0.0-0.4); EOSINOPHILS % 0.4 % (0.0-6.0); HEMATOCRIT 45.6 % (34.2-44.1); HEMOGLOBIN 15.7 g/dL (12.0-16.0); LYMPHOCYTES # (AUTO) 6.5 (1.0-3.2); LYMPHOCYTES % 53.9 % (18.0-39.1); MEAN CORPUSCULAR HEMOGLOBIN 29.2 pg (28-32); MEAN CORPUSCULAR HGB CONC 34.4 g/dL (31-35); MEAN CORPUSCULAR VOLUME 84.8 fL (81-99); MONOCYTES # (AUTO) 0.8 (0.2-0.8); MONOCYTES % 6.8 % (4.4-11.3); NEUTROPHILS # (AUTO) 4.5 (2.1-6.9); NEUTROPHILS % 37.6 % (38.7-80.0); PLATELET COUNT 213 x10e3/uL (140-360); RED BLOOD COUNT 5.38 x10e6/uL (3.6-5.1); RED CELL DISTRIBUTION WIDTH 12.8 % (11.7-14.4)
[2022-12-31 20:12] LABS: ALBUMIN 3.2 g/dL (3.5-5.0); ALBUMIN/GLOBULIN RATIO 0.8 (0.8-2.0); ANION GAP 15.5 mmol/L (8-16); CALCIUM 9.3 mg/dL (8.4-10.2); CREATININE, SERUM 0.82 mg/dL (0.57-1.11); POTASSIUM 3.5 mmol/L (3.5-5.1)
[2022-12-31 21:22] VITALS: BP 154/80
== END 2022-12-31 21:13 | disposition home or self-care (01) ==
LOC: ER 19:36
DX: E11.65 Type 2 diabetes mellitus with hyperglycemia (principal); I10 Essential (primary) hypertension; K76.9 Liver disease, unspecified; G40.909 Epilepsy, unspecified, not intractable, without status epilepticus
CPT/HCPCS: 36415; 80053; 82948; 85025; 99283

== ENCOUNTER 2023-02-01 12:21 | Emergency (ER) | payer OTHER ==
[~2023-02-01] VITALS: Ht 149.9 cm; Wt 76.2 kg
[2023-02-01] MEDS ORDERED: CEFTRIAXONE 500 MG VIAL IM ONE (13:30)
[2023-02-01] MEDS ORDERED: LIDOCAINE HCL 1% LOCAL INJ 20 ML VIAL INJ ONE (13:30)
[2023-02-01] MEDS ORDERED: METRONIDAZOLE 500 MG TAB PO ONE (13:30)
[2023-02-01] MEDS ORDERED: DOXYCYCLINE HY100 MG PO (13:35)
[2023-02-01 13:48] LABS: CLARITY,URINE CLOUDY (CLEAR); COLOR,URINE YELLOW (YELLOW); KETONES,URINE 1+ (NEGATIVE); LEUKOCYTE ESTERASE ,URINE SMALL (NEGATIVE); NITRITE,URINE NEGATIVE (NEGATIVE); PROTEIN,URINE DIPSTICK >=300 (NEGATIVE); URINE UROBILINOGEN 1 mg/dL (0.2 - 1)
[2023-02-01 14:01] LABS: AMORPHOUS SEDIMENT,URINE MODERATE (FEW); BACTERIA,URINE MODERATE /HPF; TRICHOMONAS,URINE FEW; WBC,URINE (MAN) 21-50 /HPF (0-5)
[2023-02-01 14:24] VITALS: O2SAT 100
== END 2023-02-01 14:25 | disposition home or self-care (01) ==
LOC: ER 12:28
DX: N89.8 Other specified noninflammatory disorders of vagina (principal); N72 Inflammatory disease of cervix uteri; I10 Essential (primary) hypertension; E11.9 Type 2 diabetes mellitus without complications; Z79.84 Long term (current) use of oral hypoglycemic drugs; K74.60 Unspecified cirrhosis of liver; F10.10 Alcohol abuse, uncomplicated; R10.2 Pelvic and perineal pain; Z79.899 Other long term (current) drug therapy
CPT/HCPCS: 81001; 87210; 87491; 87591; 99283; J0696; J2001

== ENCOUNTER 2024-05-08 08:22 | Emergency (ER) | payer OTHER ==
[~2024-05-08] VITALS: Ht 149.9 cm; Wt 45.4 kg
[~2024-05-08 08:22] MED LIST changes: +DOXYCYCLINE HY100 MG PO; +NAPROXEN250 MG PO
[2024-05-08 08:24] VITALS: TEMP 98.1
[2024-05-08 08:41] VITALS: PULSE 96; RESP 19
[2024-05-08 10:27] VITALS: BP 145/84; PULSE 71; RESP 18; TEMP 98.3; O2SAT 99
== END 2024-05-08 09:50 | disposition left against medical advice (07) ==
LOC: ER 08:30
DX: M79.605 Pain in left leg (principal); F15.10 Other stimulant abuse, uncomplicated; Z59.00 Homelessness unspecified; I10 Essential (primary) hypertension; E11.9 Type 2 diabetes mellitus without complications; K76.9 Liver disease, unspecified; G40.909 Epilepsy, unspecified, not intractable, without status epilepticus; Z85.89 Personal history of malignant neoplasm of other organs and systems
CPT/HCPCS: 99283